=== PATIENT | female | born 1985 | race Caucasian/White ===

== ENCOUNTER 2022-02-28 05:34 | Inpatient (IN) | payer BC ==
[2022-02-27 14:30] LABS: Hemoglobin 11.3 g/dL (12.0-15.5); Mean Corpuscular Hemoglobin 26.2 pg (27.0-33.0); Mean Corpuscular Volume 81.7 fl (81.6-98.3); Mean Platelet Volume 11.7 fl (7.4-10.4); Platelet Count 197 10x3/uL (150-450); Red Blood Cell (RBC) Count 4.32 10x6/uL (3.90-5.03); White Blood Cell (WBC) Count 8.6 10x3/uL (3.5-10.5)
[2022-02-27 15:20] LABS: Hep B Surf Ag Non-Reactive S/CO (NonReactive)
[2022-02-27 15:21] LABS: Syphilis Antibody Nonreactive (Nonreactive); Syphilis Antibody Index 0.06 S/CO (<1.00 Non-Reactive)
[2022-02-27 15:22] LABS: HBSAg Index 0.19 S/CO (0-0.99)
[2022-02-28 00:49] LABS: SARS-CoV-2 PCR by NAA Not Detected (NotDetected)
[~2022-02-28 05:34] MED LIST: Bicitra 30 ML UDCUP PO PRN; Famotidine/PF 20 mg/2ml Vial SLOW IVP PRN; Ondansetron PF 4 MG/2 ML Vial IVP PRN; Promethazine HCl 25 MG/ML VIAL IM PRN; ceFAZolin 2 GM/Dextrose 50 ML 2 GM in Premix Bag 1 BAG IVPB SCH; hydrALAZINE 20 MG/ML VIAL SLOW IVP PRN
[2022-02-28 06:08] VITALS: BMI 42.3
[2022-02-28] MEDS: Lactated Ringer's 1,000 ML IV SCH ×2 (06:20→07:11)
[2022-02-28] MEDS ORDERED: Oxytocin 10 UNITS/ML VIAL ONE ×2 (06:42→08:14)
[2022-02-28] MEDS ORDERED: Morphine PF 10 MG/10 ML VIAL ONE (06:42)
[2022-02-28] MEDS ORDERED: Dexamethasone 4 mg/ml Vial ONE (06:43)
[2022-02-28] MEDS ORDERED: Phenylephrine 40 MG/NS 250 ML 250 ML ONE (06:43)
[2022-02-28] MEDS ORDERED: Ondansetron PF 4 MG/2 ML Vial ONE (06:43)
[2022-02-28] MEDS ORDERED: Famotidine/PF 20 mg/2ml Vial ONE (06:43)
[2022-02-28] MEDS ORDERED: Metoclopramide HCl 10 MG/2 ML VIAL ONE (06:43)
[2022-02-28] MEDS ORDERED: EPINEPHrine 1 MG/ML AMP ONE (07:11)
[2022-02-28] MEDS ORDERED: diphenhydrAMINE 50 MG/ML VIAL IVP PRN (07:25)
[2022-02-28] MEDS ORDERED: Fentanyl 100 MCG/2 ML VIAL SLOW IVP PRN (07:25)
[2022-02-28] MEDS ORDERED: Promethazine HCl 25 MG SUPP PR PRN (07:25)
[2022-02-28] MEDS ORDERED: Naloxone HCl 0.4 mg/ml Vial IV PRN (07:25)
[2022-02-28] MEDS ORDERED: Moisturizing Cream (Eucerin) 113 GM JAR TOP PRN (07:25)
[2022-02-28] MEDS ORDERED: Ondansetron HCl/PF 4 MG/2 ML Vial IVP PRN (07:25)
[2022-02-28] MEDS ORDERED: Ondansetron PF 4 MG/2 ML Vial IVP PRN (07:25)
[2022-02-28] MEDS ORDERED: Meperidine HCl/PF 25 MG/ML VIAL SLOW IVP PRN (07:25)
[2022-02-28] MEDS ORDERED: Promethazine HCl 25 MG/ML VIAL IM PRN (07:25)
[2022-02-28] MEDS ORDERED: Naloxone HCl 0.4 mg/ml Vial IVP PRN ×2 (07:25)
[2022-02-28] MEDS ORDERED: Communication Order-Pharmacy FS SCH (07:30)
[2022-02-28] MEDS ORDERED: Ketorolac Tromethamine 30 MG/ML VIAL ONE (08:11)
[2022-02-28] MEDS ORDERED: diphenhydrAMINE 25 MG CAP PO PRN (12:01)
[2022-02-28] MEDS ORDERED: Acetaminophen 325 MG TAB PO PRN (12:01)
[2022-02-28] MEDS ORDERED: hydrALAZINE 20 MG/ML VIAL SLOW IVP PRN (12:01)
[2022-02-28] MEDS ORDERED: Bisacodyl 10 MG SUPP PR PRN (12:01)
[2022-02-28] MEDS ORDERED: HYDROcodone/Acetaminophen 5/325 mg Tablet PO PRN (12:01)
[2022-02-28] MEDS ORDERED: Docusate 100 MG CAP PO SCH (12:15)
[2022-02-28] MEDS ORDERED: Ibuprofen 800 MG TAB PO SCH (14:00)
[2022-02-28] MEDS ORDERED: Ketorolac Tromethamine 30 MG/ML VIAL IVP PRN (15:00)
[2022-02-28] MEDS: Ketorolac Tromethamine 30 MG/ML VIAL IVP PRN (16:32)
[2022-03-01] MEDS: Ketorolac Tromethamine 30 MG/ML VIAL IVP PRN ×2 (00:43→13:18)
[2022-03-01 04:43] LABS: Hemoglobin 9.2 g/dL (12.0-15.5); Mean Corpuscular HGB CONC 33.1 g/dL (32.0-36.0); Mean Corpuscular Hemoglobin 26.7 pg (27.0-33.0); Mean Corpuscular Volume 80.6 fl (81.6-98.3); Mean Platelet Volume 11.4 fl (7.4-10.4); Platelet Count 181 10x3/uL (150-450); RBC Distribution Width 14.9 % (11.5-14.5); Red Blood Cell (RBC) Count 3.45 10x6/uL (3.90-5.03); White Blood Cell (WBC) Count 12.3 10x3/uL (3.5-10.5)
[2022-03-01] MEDS: Docusate 100 MG CAP PO SCH ×3 (07:32→21:28)
[2022-03-01] MEDS: Simethicone Chewable 80 MG TAB PO PRN ×3 (07:36→21:28)
[2022-03-01] MEDS: Lactated Ringer's 1,000 ML IV SCH (09:14)
[2022-03-01] MEDS: HYDROcodone/Acetaminophen 5/325 mg Tablet PO PRN ×3 (11:36→21:29)
[2022-03-01] MEDS ORDERED: Boostrix 0.5 ML (Tdap) VIAL IM ONE (12:01)
[2022-03-01] MEDS: Ibuprofen 800 MG TAB PO SCH (21:29)
[2022-03-02] MEDS: Ibuprofen 800 MG TAB PO SCH ×3 (06:08→21:25)
[2022-03-02] MEDS: Docusate 100 MG CAP PO SCH ×2 (08:07→21:25)
[2022-03-02] MEDS: Simethicone Chewable 80 MG TAB PO PRN ×2 (12:43→21:25)
[2022-03-02] MEDS: HYDROcodone/Acetaminophen 5/325 mg Tablet PO PRN (14:33)
[2022-03-03] MEDS: Ibuprofen 800 MG TAB PO SCH ×2 (05:27→14:15)
[2022-03-03 07:55] VITALS: BP 122/71; TEMP 97.7
[2022-03-03] MEDS: Docusate 100 MG CAP PO SCH (09:07)
== END 2022-03-03 16:15 | disposition home or self-care (01) | DRG 785 ==
LOC: CSHLD 05:34 → CSHPP 12:28
PROVIDERS: ADMIT Obstetrics & Gynecology; ATTEND Obstetrics & Gynecology
PROC: 10D00Z1 Extraction of Products of Conception, Low, Open Approach (ICD-10-PCS; principal; 2022-02-28)
PROC: 0UB70ZZ Excision of Bilateral Fallopian Tubes, Open Approach (ICD-10-PCS; 2022-02-28)
DX: O44.23 Partial placenta previa NOS or without hemorrhage, third trimester (principal); Z3A.37 37 weeks gestation of pregnancy; Z37.0 Single live birth; Z20.822 Contact with and (suspected) exposure to COVID-19; Z80.3 Family history of malignant neoplasm of breast
CPT/HCPCS: 36415; 51702; 85027; 86780; 86850; 86900; 86901; 87340; 88302; J0171; J0690; J1100; J1885; J2274; J2405; J2590; J2765; J7120; S0028; U0003; U0005